=== PATIENT | female | born 1965 | race African-American/Black ===

== ENCOUNTER → 2017-01-01 | Day surgery (SDC) | payer OTHER ==
[~2017-01-01] MED LIST: CETI10TA22 PO; CLON0.2T PO; FAMOTIDINE 20 MG/2 ML VIAL ONE; FENTANYL PF 100 MCG/2 ML VIAL. IV PRN; GLYCOPYRROLATE 1 MG/5 ML VIAL. ONE; IV RINGERS,LACTATED 1000ML 1,000 ML IV SCH; KETAMINE HCL 500 MG/10 ML VIAL. ONE; LIDOCAINE 1% 1 ML SYRINGE. ID PRN; METF500T4 PO; MIDAZOLAM HCL/PF 2 MG/2 ML VIAL. IV PRN; MIDAZOLAM HCL/PF 2 MG/2 ML VIAL. ONE; ONDANSETRON PF 4 MG/2 ML VIAL. ONE; OXYTOCIN 10 UNIT/ML VIAL. ONE; PRAV10TA2 PO; PROPOFOL 20 ML IV ONE; SILVER NITRATE STICK TP ONE; VALS160T3 PO
--- NOTE | 2017-01-01 06:54 | EKG ---
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
[2017-01-01 07:02] LABS: BASO % 1 % (0-3); EOS % 1 % (0-3); HEMATOCRIT 40.2 % (36.0-47.0); HEMOGLOBIN 13.4 g/dL (12.0-15.5); LYMPH # 2.6 x10^3/uL (1.0-4.8); LYMPH % 34 % (24-48); MEAN CORPUSCULAR HEMOGLOBIN 28 pg (25-35); MEAN CORPUSCULAR HGB CONC 33 g/dL (31-37); MEAN CORPUSCULAR VOLUME 84 fL (79-100); MONO % 8 % (0-9); NEUT % 57 % (31-73); PLATELET COUNT 323 x10^3/uL (140-400); RED BLOOD COUNT 4.77 x10^6/uL (3.50-5.40); RED CELL DISTRIBUTION WIDTH 14.3 % (11.5-14.5); WHITE BLOOD COUNT 7.7 x10^3/uL (4.0-11.0)
[2017-01-01 07:13] LABS: CREATININE 0.8 mg/dL (0.6-1.0); GFR 91.1; POTASSIUM 3.8 mmol/L (3.5-5.1)
[2017-01-01 07:18] LABS: ALBUMIN 3.6 g/dL (3.4-5.0); ALBUMIN/GLOBULIN RATIO 0.9 (1.0-1.7); TOTAL BILIRUBIN 0.5 mg/dL (0.2-1.0); TOTAL PROTEIN 7.7 g/dL (6.4-8.2)
--- NOTE | 2017-01-01 08:49 | PDOC ---
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
--- NOTE | 2017-01-01 08:50 | DISCH ---
DISCHARGE INSTRUCTIONS Condition on Discharge Condition on Discharge: Stable Activity After Discharge Activity Instructions for Disc: No restrictions Exercise Instruction after Dis: Progress as tolerated Driving Instructions after Dis: Do not drive today Weight Bearing Status after Di: Full weight bearing Diet after Discharge Diet after Discharge: Regular Wound Incision Care Wound/Incision Care: No wound care needed Contacting the DRMarylu after DC Call your doctor for: If your condition worsens Follow-Up Follow up with: Dr. White in 1 week DRE WHITE MD Jan 01, 2017 08:50
[2017-01-01 09:45] VITALS: BP 154/64
--- NOTE | 2017-01-01 09:45 | OP ---
DATE OF SURGERY: 01/01/2017 PREOPERATIVE DIAGNOSES: Postmenopausal bleeding and thickened endometrium. POSTOPERATIVE DIAGNOSES: Postmenopausal bleeding and thickened endometrium. PROCEDURE: Hysteroscopy with D and C. SURGEON: Carmen White MD. ANESTHESIA: ____. ESTIMATED BLOOD LOSS: Less than 25 mL. INTRAVENOUS FLUIDS: Please see the anesthesia report. SPECIMENS: Uterine curettings. DESCRIPTION OF PROCEDURE: After informed consent was obtained, the patient was taken to the operating room and given a smooth induction of anesthesia without complications. Her abdomen, perineum, and vagina were prepped and draped in the usual sterile fashion. Her legs have been placed in Jani stirrups and her perineum and vagina had been prepped and draped in usual sterile fashion. A bivalve speculum was placed in the vagina and the anterior lip of the cervix was grasped with a single tooth tenaculum. Cervix was dilated to accommodate the hysteroscope. Hysteroscopy revealed a normal endometrial cavity with fluffy endometrial tissue present. No obvious abnormality was noted. Curettage was then performed productive of a moderate amount of tissue. The tissue was sent to the lab. At this point, the procedure was terminated. The tenaculum was removed from the cervix and the speculum was removed from the vagina. The patient tolerated the procedure well. There were no complications. CARMEN WHITE MD DR: HARSH/arabella JOB#: [id number] / [id number]
--- NOTE | 2017-01-02 14:02 | PATHOLOGY ---
PATHOLOGY REPORT * * * * * * * * FINAL DIAGNOSIS: Endometrium, curettage: - Blood and fragments of disordered proliferative endometrium with tubal metaplasia. - Focal area somewhat suggestive of endometrial polyp. (SKM:nain; d/t: 01/02/2017) REPORT ELECTRONICALLY SIGNED BY: Rossi Sun M.D. DATE/TIME: 01/02/2017 14:01 * * * * * * * * GROSS PATHOLOGY: The specimen is received in formalin, labeled "Kathrin Abdul and uterine curettings." Received is a 5.5 x 4.5 x 1.8 cm aggregate of dark red blood coagulum admixed with pink-salas and rubbery soft tissue fragments. The specimen is entirely submitted in cassettes A1-A6. (TTL; 01/01/2017) INITIAL CPT CODE(S): A; 50656 Professional services performed [place] [facility] [place] [address] Technical services performed by [facility] at [address] [place] [address], [address], [place] [address]. SPECIMEN(S) RECEIVED: A.Uterine curettings CLINICAL HISTORY: Simple endometrial hyperplasia without atypia, thickened endometrium PATIENT: KATHRIN ABDUL /AGE: 5 1965 (Age: 51) PATIENT #: [id number] ALT CASE #: SPECIMEN COLLECTION DATE: 01/01/2017 SPECIMEN RECEIVED DATE: 01/01/2017 [facility] - [address] [place] [address] - PHONE: [phone] * * * END OF REPORT * * *
== END | disposition home or self-care (01) ==
LOC: SURG 06:08
PROVIDERS: ATTEND Obstetrics & Gynecology
DX: N95.0 Postmenopausal bleeding (principal); I10 Essential (primary) hypertension; E11.21 Type 2 diabetes mellitus with diabetic nephropathy; E66.9 Obesity, unspecified; Z68.43 Body mass index [BMI] 50.0-59.9, adult; E78.2 Mixed hyperlipidemia; E78.00 Pure hypercholesterolemia, unspecified
CPT/HCPCS: 36415; 58558; 80053; 82947; 85027; 88305; 93005; J2250; J2405; J2704; J3010; J3490; S0028; J2590